=== PATIENT | male | born 1955 | race Caucasian/White ===

== ENCOUNTER 2021-03-18 19:33 | Inpatient (IN) ==
[2021-03-18] MEDS ORDERED: VENTOLIN HFA (PER PUFF-WITH SPACER) IH STA (20:13)
[2021-03-18] MEDS ORDERED: DECADRON IVP ONE (20:20)
--- NOTE | 2021-03-18 20:20 | ED.PDOC ---
General ED Provider: Dr. HANH MOREAU Chief Complaint: Respiratory Complaint Stated Complaint: Patient is a 65 year old male who has a history DM, [place], Tobacco use 80 pk years who is not complaint with medications and has not been vaccinated. He was COVID positive over a week ago. Has had symptoms for 5-7 days. States that he feels short of breath and has body aches. Denies any chest pain. Is agreeable to admission and is a full code. Time Seen by Provider: 03/18/21 19:34 Mode of Arrival: Walk-In Information Source: Patient Nursing and Triage Documentation Reviewed and Agree: Yes Does patient meet sepsis criteria?: No System Inflammatory Response Syndrome: Pulse >90 BPM Sepsis Protocol: For patient's 13 years and over: Temp is 96.8 and below OR 101 and greater Pulse >90 BPM Resp >20/minute Acutely Altered Mental Status Are patient's symptoms suggestive of a new infection, such as: -Pneumonia -Skin, Soft Tissue -Endocarditis -UTI -Bone, Joint Infection -Implantable Device -Acute Abdominal Infection -Wound Infection -Meningitis -Blood Stream Catheter Infection -Unknown Review of Systems Review Of Systems Constitutional: Reports No symptoms Eyes: Reports No symptoms Ears, Nose, Mouth, Throat: Reports No symptoms Respiratory: Reports Short of air Cardiac: Denies Chest pain GI: Reports No symptoms : Reports No symptoms Musculoskeletal: Reports No symptoms Skin: Reports No symptoms Neurological: Reports Anxiety Endocrine: Reports No symptoms All Other Systems: Reviewed and Negative [facility] Medical History (Updated 03/18/21 @ 22:10 by HANH MOREAU MD) Poorly controlled diabetes mellitus Social History Smoking and tobacco status: Current every day smoker Physical Exam Physical Exam Appearance: Reports Ill-appearing Ill-appearing: Moderate Pain Distress: None Eyes: Reports LUZ MARIA, EOMI and Conjunctiva clear ENT: Reports Nose normal and Oropharynx normal Neck: Supple Respiratory: Reports Airway patent and Breath sounds clear Cardiovascular: Reports RRR, Pulses normal and No rub GI/: Reports Soft, Nontender and No masses Musculoskeletal: Reports Normal strength and ROM intact Skin: Reports Warm and Dry Neurological: Reports Motor intact, Alert and Oriented Psychiatric: Reports Anxious Interpretation Radiology Interpretation Radiology Interpretation By: Radiologist Radiology Results: Positive (1. Essentially nondiagnostic examination for pulmonary embolism. No large embolism in the pulmonary trunk and main pulmonary arteries. 2. Patchy airspace opacities in the bilateral upper and lower lobes, right greater than left, consistent with multifocal pneumonia. 3. Bilateral emphysematous matt) Exam Interpreted: CT Scan EKG Interpretation Time of EKG #1: 20: Rate: Normal Rhythm: Sinus Ectopy: None [place]: NL (60) ST Segment: Normal Interpretation: LEFT ATRIAL ENLARGEMENT Critical Care Note Critical Care Note Total Critical Care Time (mins): 40 Course Course Hematology/Chemistry: 03/18/21 20:35 03/18/21 20:35 Orders, Labs, Meds: Lab Review 03/18/21 03/18/21 03/18/21 20:30 20:30 20:30 WBC RBC Hgb Hct MCV MCH MCHC RDW Coeff of Cally Plt Count Immature Gran % (Auto) Neut % (Auto) Lymph % (Auto) [place] % (Auto) Eos % (Auto) Baso % (Auto) Neut # (Auto) Lymph # (Auto) [place] # (Auto) Eos # (Auto) Baso # (Auto) Immature Gran # (Auto) PT INR Puncture Site Lb Base Excess -1.0 O2 Saturation 85.1 L ABG pH 7.46 H ABG pCO2 32.0 L ABG pO2 47.0 L* ABG HCO3 22.8 ABG Total CO2 23.8 Emile Test + Hemoglobin 0.9 Oxyhemoglobin 84.3 L Carboxyhemoglobin 3.1 H Total Hemoglobin 19.7 H FiO2 % 21.0 Sodium Potassium Chloride Carbon Dioxide Anion Gap BUN Creatinine Estimated GFR (MDRD) BUN/Creatinine Ratio Glucose Hemoglobin A1c Lactic Acid Calcium Ferritin Total Bilirubin AST ALT Alkaline Phosphatase Total Creatine Kinase CK-MB (CK-2) CK-MB (CK-2) % Troponin I Total Protein Albumin Globulin Albumin/Globulin Ratio Procalcitonin D-Dimer Influ A Molecular Assay Negative by naat Influ B Molecular Assay Negative by naat SARS CoV-2 RNA Rapid DEON Positive H 03/18/21 03/18/21 03/18/21 20:35 20:35 20:35 WBC RBC Hgb Hct MCV MCH MCHC RDW Coeff of Cally Plt Count Immature Gran % (Auto) Neut % (Auto) Lymph % (Auto) [place] % (Auto) Eos % (Auto) Baso % (Auto) Neut # (Auto) Lymph # (Auto) [place] # (Auto) Eos # (Auto) Baso # (Auto) Immature Gran # (Auto) PT 11.0 INR 1.06 Puncture Site Base Excess O2 Saturation ABG pH ABG pCO2 ABG pO2 ABG HCO3 ABG Total CO2 Emile Test Hemoglobin Oxyhemoglobin Carboxyhemoglobin Total Hemoglobin FiO2 % Sodium 132.8 L Potassium 4.00 Chloride 97.2 L Carbon Dioxide 26.8 Anion Gap 12.80 BUN 18.1 Creatinine 1.30 H Estimated GFR (MDRD) 55.00 BUN/Creatinine Ratio 13.92 Glucose 241.9 H Hemoglobin A1c Lactic Acid Calcium 8.74 Ferritin 615.00 H Total Bilirubin 0.56 AST 41.6 ALT 26.8 Alkaline Phosphatase 93.2 Total Creatine Kinase 130.9 CK-MB (CK-2) 1.020 CK-MB (CK-2) % 0.7700 Troponin I < 0.012 Total Protein 7.37 Albumin 3.95 Globulin 3.42 Albumin/Globulin Ratio 1.15 Procalcitonin D-Dimer 1135.64 H Influ A Molecular Assay Influ B Molecular Assay SARS CoV-2 RNA Rapid DEON 03/18/21 03/18/21 03/18/21 20:35 20:35 20:35 WBC RBC Hgb Hct MCV MCH MCHC RDW Coeff of Cally Plt Count Immature Gran % (Auto) Neut % (Auto) Lymph % (Auto) [place] % (Auto) Eos % (Auto) Baso % (Auto) Neut # (Auto) Lymph # (Auto) [place] # (Auto) Eos # (Auto) Baso # (Auto) Immature Gran # (Auto) PT INR Puncture Site Base Excess O2 Saturation ABG pH ABG pCO2 ABG pO2 ABG HCO3 ABG Total CO2 Emile Test Hemoglobin Oxyhemoglobin Carboxyhemoglobin Total Hemoglobin FiO2 % Sodium Potassium Chloride Carbon Dioxide Anion Gap BUN Creatinine Estimated GFR (MDRD) BUN/Creatinine Ratio Glucose Hemoglobin A1c 13.56 H D Lactic Acid 1.96 Calcium Ferritin Total Bilirubin AST ALT Alkaline Phosphatase Total Creatine Kinase CK-MB (CK-2) CK-MB (CK-2) % Troponin I Total Protein Albumin Globulin Albumin/Globulin Ratio Procalcitonin 0.28 H D-Dimer Influ A Molecular Assay Influ B Molecular Assay SARS CoV-2 RNA Rapid DEON 03/18/21 20:35 WBC 7.59 RBC 5.87 Hgb 17.7 Hct 51.1 MCV 87.1 MCH 30.2 MCHC 34.6 RDW Coeff of Cally 13.2 Plt Count 109 L Immature Gran % (Auto) 0.4 Neut % (Auto) 69.4 Lymph % (Auto) 23.6 [place] % (Auto) 6.5 Eos % (Auto) 0.0 Baso % (Auto) 0.1 Neut # (Auto) 5.3 Lymph # (Auto) 1.8 [place] # (Auto) 0.5 Eos # (Auto) 0.0 Baso # (Auto) 0.0 Immature Gran # (Auto) 0.0 PT INR Puncture Site Base Excess O2 Saturation ABG pH ABG pCO2 ABG pO2 ABG HCO3 ABG Total CO2 Emile Test Hemoglobin Oxyhemoglobin Carboxyhemoglobin Total Hemoglobin FiO2 % Sodium Potassium Chloride Carbon Dioxide Anion Gap BUN Creatinine Estimated GFR (MDRD) BUN/Creatinine Ratio Glucose Hemoglobin A1c Lactic Acid Calcium Ferritin Total Bilirubin AST ALT Alkaline Phosphatase Total Creatine Kinase CK-MB (CK-2) CK-MB (CK-2) % Troponin I Total Protein Albumin Globulin Albumin/Globulin Ratio Procalcitonin D-Dimer Influ A Molecular Assay Influ B Molecular Assay SARS CoV-2 RNA Rapid DEON Orders Category Date Time Status ADMIT PATIENT INPATIENT .TO SCU (MONITORED BED) ADMISSION 03/18/21 22:07 Ordered ABG DRAW REQUEST DAILY@0600 CARDIO 03/19/21 06:00 Ordered ABG DRAW REQUEST DAILY@0600 CARDIO 03/20/21 06:00 Ordered ABG DRAW REQUEST Stat CARDIO 03/18/21 20:10 Completed EKG-(ED ONLY) Stat CARDIO 03/18/21 20:13 Completed INCENTIVE SPIROMETRY Routine CARDIO 03/18/21 21:59 Ordered METERED DOSE INHALATION Routine CARDIO 03/18/21 20:14 Ordered ACCUCHECK (MED/SURG, SCU) [BLOOD GLUCOSE MONITORING ( CARE 03/18/21 21:59 Ordered MED/SURG)] 0630,1100,1700,2100 CONTINUOUS PULSE OX (NURSING) PULSEOX CARE 03/18/21 20:10 Active CONTINUOUS PULSE OX (NURSING) PULSEOX CARE 03/18/21 21:59 Ordered GIVE HS SNACK 2100 CARE 03/18/21 22:03 Ordered NPO REMINDER: IMAGING ONCE CARE 03/18/21 20:14 Active TELEMETRY MONITORING TELE CARE 03/18/21 20:10 Active TELEMETRY MONITORING TELE CARE 03/18/21 21:59 Ordered TELEMETRY MONITORING TELE CARE 03/18/21 22:07 Ordered ADA 1800 BETH. DIET DIETARY 03/19/21 Breakfast Ordered HS SNACK DIETARY 03/18/21 Dinner Ordered ABG COOX DAILY@0600 LAB 03/19/21 06:00 Ordered ABG COOX DAILY@0600 LAB 03/20/21 06:00 Ordered ABG COOX Stat LAB 03/18/21 20:30 Completed BLOOD CULTURE (ED ONLY) Stat LAB 03/18/21 20:35 Received C-REACTIVE PROTEIN DAILY@0600 LAB 03/19/21 06:00 Ordered C-REACTIVE PROTEIN DAILY@0600 LAB 03/20/21 06:00 Ordered C-REACTIVE PROTEIN Stat LAB 03/18/21 20:35 Received CBC W/ AUTO DIFF DAILY@0600 LAB 03/19/21 06:00 Ordered CBC W/ AUTO DIFF DAILY@0600 LAB 03/20/21 06:00 Ordered CBC W/ AUTO DIFF Stat LAB 03/18/21 20:35 Completed CMP [COMPREHENSIVE METABOLIC PANEL] DAILY@0600 LAB 03/19/21 06:00 Ordered CMP [COMPREHENSIVE METABOLIC PANEL] DAILY@0600 LAB 03/20/21 06:00 Ordered COMPREHENSIVE METABOLIC PANEL Stat LAB 03/18/21 20:35 Completed CREATINE KINASE Stat LAB 03/18/21 20:35 Completed D-DIMER DAILY@0600 LAB 03/18/21 06:00 Ordered D-DIMER DAILY@0600 LAB 03/19/21 06:00 Ordered D-DIMER DAILY@0600 LAB 03/20/21 06:00 Ordered D-DIMER Stat LAB 03/18/21 20:35 Completed FERRITIN DAILY@0600 LAB 03/19/21 06:00 Ordered FERRITIN DAILY@0600 LAB 03/20/21 06:00 Ordered FERRITIN Stat LAB 03/18/21 20:35 Completed FLU A & B MOLECULAR [FLU A/B MOLECULAR] Stat LAB 03/18/21 20:30 Completed HEMOGLOBIN A1C Stat LAB 03/18/21 20:35 Completed LACTIC ACID Stat LAB 03/18/21 20:35 Completed Lactic Acid Dehydrogenase DAILY@0600 LAB 03/19/21 06:00 Ordered Lactic Acid Dehydrogenase Stat LAB 03/18/21 20:35 Received PROCALCITONIN Stat LAB 03/18/21 20:35 Completed PT WITH INR Stat LAB 03/18/21 20:35 Completed TROPONIN I DAILY@0600 LAB 03/19/21 06:00 Ordered TROPONIN I DAILY@0600 LAB 03/20/21 06:00 Ordered TROPONIN I Stat LAB 03/18/21 20:35 Completed Albuterol Inhaler(with Spacer) [Ventolin Hfa (Per Puff- MEDS 03/18/21 20:13 Discontinued with Spacer)] 4 puff IH ONCE STA Budesonide/Formoterol Fumarate [Symbicort 160-4.5 Mcg MEDS 03/19/21 09:00 Ordered Inhaler] 4 puff IH BID Ceftriaxone 1 gm Vial [Rocephin 1 gm Vial] 1 gm MEDS 03/19/21 09:00 Ordered 0.9 % Sodium Chloride [Sodium Chloride 100Ml] 100 ml IV DAILY Ceftriaxone 1 gm Vial [Rocephin 1 gm Vial] 1 gm MEDS 03/18/21 21:59 Ordered 0.9 % Sodium Chloride [Sodium Chloride 100Ml] 100 ml IV ONCE Cholecalciferol (Vitamin D3) [Vitamin D] MEDS 03/19/21 09:00 Ordered 5,000 unit PO DAILY Dexamethasone Sod Phosphate [Decadron] MEDS 03/19/21 09:00 Ordered 6 mg IM DAILY Dexamethasone Sod Phosphate [Decadron] MEDS 03/18/21 20:20 Discontinued 6 mg IVP ONCE ONE Enoxaparin Sodium [Lovenox] MEDS 03/19/21 09:00 Ordered 40 mg SUBCUT DAILY Famotidine [Pepcid] MEDS 03/19/21 06:30 Ordered 40 mg PO BIDAC Nicotine 21 mg [Nicoderm 21 mg] MEDS 03/19/21 09:00 Ordered 1 patch TD DAILY Remdesivir Solution [Veklury] 100 mg MEDS 03/20/21 09:00 Ordered 0.9 % Sodium Chloride [Sodium Chloride] 250 ml IV DAILY Remdesivir Solution [Veklury] 200 mg MEDS 03/19/21 09:59 Ordered 0.9 % Sodium Chloride [Sodium Chloride] 250 ml IV ONCE Zinc Sulfate [Zinc-220] MEDS 03/19/21 09:00 Ordered [address] CHEST PE PROTOCOL Stat RADS 03/18/21 20:13 Taken Medications Generic Name Dose Route Start Last Admin Trade Name Freq PRN Reason Stop Dose Admin Budesonide/Formoterol Fumarate 4 puff 03/19/21 09:00 Budesonide/Formoterol Fumarate 160/4.5 Mcg Inhaler IH BID [facility] Cholecalciferol 5,000 unit 03/19/21 09:00 Cholecalciferol (Vitamin D3) 1,000 Unit (25 Mcg) Tablet PO DAILY LUKE Dexamethasone Sodium Phosphate 6 mg 03/19/21 09:00 Dexamethasone Sod Phos 10 Mg/Ml Inj IM DAILY LUKE Enoxaparin Sodium 40 mg 03/19/21 09:00 Enoxaparin Sodium 40 Mg/0.4 Ml Syr SUBCUT DAILY LUKE Famotidine 40 mg 03/19/21 06:30 Famotidine 20 Mg Tablet PO BIDAC LUKE REMDESIVIR SOLUTION 100 mg/ 270 mls @ 270 mls/hr 03/20/21 09:00 Sodium Chloride IV DAILY LUKE REMDESIVIR SOLUTION 200 mg/ 290 mls @ 145 mls/hr 03/19/21 09:59 Sodium Chloride IV 03/19/21 11:58 ONCE ONE Ceftriaxone Sodium 1 gm/ 100 mls @ 150 mls/hr 03/18/21 21:59 Sodium Chloride IV 03/18/21 22:38 ONCE STA Ceftriaxone Sodium 1 gm/ 100 mls @ 150 mls/hr 03/19/21 09:00 Sodium Chloride IV 03/22/21 08:59 DAILY LUKE Zinc Sulfate 220 mg 03/19/21 09:00 Zinc Sulfate 220 Mg Capsule PO DAILY LUKE Discontinued Medications Generic Name Dose Route Start Last Admin Trade Name Patrickq PRN Reason Stop Dose Admin Albuterol Sulfate 4 puff 03/18/21 20:13 03/18/21 20:20 Albuterol Sulfate (Ventolin Hfa) 18 Gm 1 Puff With Spacer IH 03/18/21 20:14 4 puff ONCE STA Administration Dexamethasone Sodium Phosphate 6 mg 03/18/21 20:20 03/18/21 20:54 Dexamethasone Sod Phos 10 Mg/Ml Inj IVP 03/18/21 20:21 6 mg ONCE ONE Administration Vital Signs: Temp Pulse Resp BP Pulse Ox 03/18/21 20:00 99.6 F 102 H 20 139/67 93 L Discharge Plan Discharge Patient Disposition: ADMITTED INPATIENT Discharge Problem: Acute hypoxemic respiratory failure due to COVID-19, Poorly controlled diabetes mellitus ED Provider: HANH MOREAU Condition: Fair Physician Progress Note: []
[2021-03-18 20:39] LABS: ABG O2 HGB 84.3 % (95-100); ABG PH 7.46 (7.35-7.45); COHb 3.1 (0.5-1.5); HCO3 22.8 (21-28); MetHb 0.9 (0-1.5); TCO2 23.8 (19-24); sO2 85.1 % (94-98); tHb 19.7 g/dl (11.7-17.4)
[2021-03-18 20:58] LABS: ALANINE AMINOTRANSFERASE 26.8 U/L (0-50); ALBUMIN 3.95 g/dL (3.5-5.0); ALKALINE PHOSPHATASE 93.2 U/L (56-119); ASPARTATE AMINO TRANSFERASE 41.6 U/L (17-59); BILIRUBIN,TOTAL 0.56 mg/dL (0.2-1.3); BLOOD UREA NITROGEN 18.1 mg/dL (9-20); CALCIUM 8.74 mg/dL (8.4-10.2); CARBON DIOXIDE 26.8 mmol/L (22-30.0); CHLORIDE 97.2 mmol/L (98-107); CREATINE KINASE 130.9 U/L (55-170); GLUCOSE 241.9 mg/dL (74-106); SODIUM 132.8 mmol/L (134.5-145); TOTAL PROTEIN 7.37 g/dL (6.3-8.2)
[2021-03-18 21:08] LABS: BASOPHILS % (AUTO) 0.1 % (0.0-3.0); HEMATOCRIT 51.1 % (42.0-52.0); HEMOGLOBIN 17.7 g/dl (14.0-18.0); IMMATURE GRANULOCYTE % (AUTO) 0.4 % (0.0-5.0); LYMPHOCYTES # (AUTO) 1.8 K/uL (0.60-3.4); LYMPHOCYTES % (AUTO) 23.6 (10.0-50.0); MEAN CORPUSCULAR HEMOGLOBIN 30.2 pg (27.0-31.0); MEAN CORPUSCULAR HGB CONC 34.6 (31.8-35.4); MEAN CORPUSCULAR VOLUME 87.1 fl (80.0-94.0); MONOCYTES # (AUTO) 0.5 K/uL (0.4-2.0); MONOCYTES % (AUTO) 6.5 (0-10); NEUTROPHILS # (AUTO) 5.3 K/ul (2.0-6.9); NEUTROPHILS % (AUTO) 69.4 % (42.2-75.2); PLATELET COUNT 109 10^3/uL (140-440); RDW COEFFICIENT OF VARIATION 13.2 % (11.6-14.8); RED BLOOD COUNT 5.87 10^6/ul (4.70-6.10); WHITE BLOOD COUNT 7.59 K/ul (4.2-10.2)
[2021-03-18 21:09] LABS: MOLECULAR FLU A NEGATIVE BY NAAT (NEGATIVE); MOLECULAR FLU B NEGATIVE BY NAAT (NEGATIVE)
[2021-03-18 21:15] LABS: TROPONIN I < 0.012 ng/ml (0.0000-0.120)
--- NOTE | 2021-03-18 21:54 | CT ---
EXAM: Chest CTA with contrast 03/18/2021 HISTORY: Short of breath, COVID-19 exposure. TECHNIQUE: Axial CT images were obtained through the chest with the administration of intravenous con trast in accordance with the PE protocol. Coronal, bilateral oblique and sagittal reformatted images were also submitted for interpretation. 3D/MIP images of the pulmonary vasculature were also genera meghan. COMPARISON: None. FINDINGS: There is poor enhancement of the pulmonary arteries due to suboptimal contrast timing. The pulmonary arteries are normal in size. There are no large filling defects in the pulmonary trunk and main pul monary arteries to suggest pulmonary embolism. There is no evidence of right heart strain. Patchy airspace opacities in the bilateral upper and lower lobes, right greater than left. There are bilateral emphysematous changes. The heart size is normal without pericardial effusion. There are coronary artery calcifications. Th e thoracic aorta is normal in size. The visualized portions of the upper abdomen are within normal limits. No pathologic lymphadenopathy is identified. Soft tissue structures are unremarkable. The bones are intact. IMPRESSION: 1. Essentially nondiagnostic examination for pulmonary embolism. No large embolism in the pulmonary trunk and main pulmonary arteries. 2. Patchy airspace opacities in the bilateral upper and lower lobes, right greater than left, consist ent with multifocal pneumonia. 3. Bilateral emphysematous changes. 4. Coronary artery calcifications. All CT scans are performed using dose optimization techniques as appropriate to the performed exam an d include at least one of the following: Automated exposure control, adjustment of the mA and/or kV according t o size, and the use of iterative reconstruction technique.
[2021-03-18] MEDS ORDERED: ROCEPHIN 1 GM VIAL 1 GM in SODIUM CHLORIDE 100ML 100 ML IV STA (21:59)
[2021-03-18] MEDS ORDERED: ROCEPHIN 1 GM VIAL ONE (22:10)
[2021-03-18] MEDS ORDERED: SODIUM CHLORIDE 1,000 ML IV STA (22:11)
[2021-03-18 23:25] VITALS: BMI 31.1
[2021-03-18] MEDS ORDERED: ZITHROMAX 500 MG in SODIUM CHLORIDE 250 ML IV ONE (23:30)
[2021-03-18] MEDS: HUMULIN R SUBCUT PRN (23:52)
[2021-03-19 04:19] LABS: ABG O2 HGB 88.7 % (95-100); ABG PH 7.47 (7.35-7.45); BEecf 2.5 (-2.0-3.0); HCO3 26.2 (21-28); MetHb 1.1 (0-1.5); TCO2 27.3 (19-24); sO2 90.2 % (94-98); tHb 16.7 g/dl (11.7-17.4)
[2021-03-19 04:57] LABS: HEMATOCRIT 48.6 % (42.0-52.0); HEMOGLOBIN 16.6 g/dl (14.0-18.0); IMMATURE GRANULOCYTE % (AUTO) 0.4 % (0.0-5.0); LYMPHOCYTES # (AUTO) 0.9 K/uL (0.60-3.4); LYMPHOCYTES % (AUTO) 12.6 (10.0-50.0); MEAN CORPUSCULAR HEMOGLOBIN 29.5 pg (27.0-31.0); MEAN CORPUSCULAR HGB CONC 34.2 (31.8-35.4); MEAN CORPUSCULAR VOLUME 86.3 fl (80.0-94.0); MONOCYTES # (AUTO) 0.3 K/uL (0.4-2.0); MONOCYTES % (AUTO) 4.7 (0-10); NEUTROPHILS # (AUTO) 5.6 K/ul (2.0-6.9); NEUTROPHILS % (AUTO) 82.3 % (42.2-75.2); PLATELET COUNT 114 10^3/uL (140-440); RDW COEFFICIENT OF VARIATION 13.3 % (11.6-14.8); RED BLOOD COUNT 5.63 10^6/ul (4.70-6.10); WHITE BLOOD COUNT 6.75 K/ul (4.2-10.2)
[2021-03-19 05:06] LABS: ALANINE AMINOTRANSFERASE 24.8 U/L (0-50); ALBUMIN 3.59 g/dL (3.5-5.0); ALKALINE PHOSPHATASE 77.7 U/L (56-119); ASPARTATE AMINO TRANSFERASE 36.6 U/L (17-59); BILIRUBIN,TOTAL 0.31 mg/dL (0.2-1.3); BLOOD UREA NITROGEN 18.8 mg/dL (9-20); CALCIUM 8.49 mg/dL (8.4-10.2); CARBON DIOXIDE 25.7 mmol/L (22-30.0); CHLORIDE 99.1 mmol/L (98-107); CREATININE 1.16 mg/dL (0.60-1.10); POTASSIUM 4.33 mmol/L (3.5-5.1); SODIUM 131.9 mmol/L (134.5-145); TOTAL PROTEIN 6.78 g/dL (6.3-8.2)
[2021-03-19 05:18] LABS: TROPONIN I 0.012 ng/ml (0.0000-0.120)
[2021-03-19] MEDS: HUMULIN R SUBCUT PRN ×5 (05:35→23:07)
[2021-03-19] MEDS: PEPCID PO SCH ×2 (05:35→17:05)
[2021-03-19] MEDS: ROCEPHIN 1 GM VIAL 1 GM in SODIUM CHLORIDE 100ML 100 ML IV SCH (09:04)
[2021-03-19] MEDS: DECADRON IM SCH (09:04)
[2021-03-19] MEDS: ZINC-220 PO SCH (09:06)
[2021-03-19] MEDS: VITAMIN D PO SCH (09:06)
[2021-03-19] MEDS: LOVENOX SUBCUT SCH (09:07)
[2021-03-19] MEDS: NICODERM 21 MG TD SCH (09:15)
[2021-03-19] MEDS: SYMBICORT 160-4.5 MCG INHALER IH SCH ×2 (09:15→20:59)
[2021-03-19] MEDS ORDERED: VEKLURY 200 MG in SODIUM CHLORIDE 250 ML IV ONE (12:00)
[2021-03-19] MEDS ORDERED: SODIUM CHLORIDE 1,000 ML IV SCH ×3 (17:00→23:30)
[2021-03-19] MEDS: ZITHROMAX 500 MG in SODIUM CHLORIDE 250 ML IV SCH (20:59)
--- NOTE | 2021-03-19 21:34 | PCM.PROG ---
Date Seen by Provider: 03/19/21 Time Seen by Provider: 20:15 Subjective: No acute SOB or chest pain. Blood sugar has been high. Objective: Vitals: T=98.8 F, P=77, R=20, VH=789/72, SPO2=93 HEENT: []wnl Neck: []supple Lungs: []generalized posterior crackles. Pt was breathing comfortably CVS: []RRR Abdomen: []benign Extremities: []no acute abnormality Neurological: []no acute focal neuro deficit Skin: []wnl Lab/Tests/Diagnostic Imaging: [] See the reports. BS >400 (1) Acute hypoxemic respiratory failure due to COVID-19: Status: Acute Code(s): U07.1 - COVID-19; J96.01 - Acute respiratory failure with hypoxia SNOMED Code(s): 069903585 (2) Poorly controlled diabetes mellitus: Status: Acute Code(s): E11.65 - Type 2 diabetes mellitus with hyperglycemia SNOMED Code(s): 989603479 Plan: 1. Continue Tx for the COvid-19 hypoxemia. 2. Sliding scale control of the hyperglycemia.
[2021-03-20 04:19] LABS: C-REACTIVE PROTEIN 89 mg/L (0-10)
[2021-03-20 05:39] LABS: HEMATOCRIT 46.1 % (42.0-52.0); HEMOGLOBIN 15.8 g/dl (14.0-18.0); IMMATURE GRANULOCYTE % (AUTO) 0.4 % (0.0-5.0); LYMPHOCYTES # (AUTO) 1.3 K/uL (0.60-3.4); LYMPHOCYTES % (AUTO) 17.6 (10.0-50.0); MEAN CORPUSCULAR HEMOGLOBIN 29.8 pg (27.0-31.0); MEAN CORPUSCULAR HGB CONC 34.3 (31.8-35.4); MEAN CORPUSCULAR VOLUME 86.8 fl (80.0-94.0); MONOCYTES # (AUTO) 0.5 K/uL (0.4-2.0); MONOCYTES % (AUTO) 7.3 (0-10); NEUTROPHILS # (AUTO) 5.4 K/ul (2.0-6.9); NEUTROPHILS % (AUTO) 74.7 % (42.2-75.2); PLATELET COUNT 109 10^3/uL (140-440); RDW COEFFICIENT OF VARIATION 13.3 % (11.6-14.8); RED BLOOD COUNT 5.31 10^6/ul (4.70-6.10); WHITE BLOOD COUNT 7.17 K/ul (4.2-10.2)
[2021-03-20 05:47] LABS: ALANINE AMINOTRANSFERASE 21.6 U/L (0-50); ALKALINE PHOSPHATASE 64.3 U/L (56-119); ASPARTATE AMINO TRANSFERASE 33.5 U/L (17-59); BILIRUBIN,TOTAL 0.24 mg/dL (0.2-1.3); BLOOD UREA NITROGEN 19.3 mg/dL (9-20); CALCIUM 8.38 mg/dL (8.4-10.2); CARBON DIOXIDE 25.3 mmol/L (22-30.0); CHLORIDE 108.2 mmol/L (98-107); CREATININE 0.93 mg/dL (0.60-1.10); GLUCOSE 182.6 mg/dL (74-106); POTASSIUM 4.09 mmol/L (3.5-5.1); SODIUM 138.7 mmol/L (134.5-145); TOTAL PROTEIN 6.24 g/dL (6.3-8.2)
[2021-03-20 05:55] LABS: ABG O2 HGB 88.1 % (95-100); ABG PH 7.45 (7.35-7.45); COHb 2.3 (0.5-1.5); MetHb 0.8 (0-1.5); TCO2 26.1 (19-24); sO2 88.1 % (94-98); tHb 15.8 g/dl (11.7-17.4)
[2021-03-20 05:57] LABS: PROTHROMBIN TIME 9.9 SEC (9.3-11.0)
[2021-03-20 06:00] LABS: TROPONIN I < 0.012 ng/ml (0.0000-0.120)
[2021-03-20] MEDS: SODIUM CHLORIDE 1,000 ML IV SCH ×2 (06:09→17:05)
[2021-03-20] MEDS: HUMULIN R SUBCUT PRN ×4 (06:10→20:45)
[2021-03-20] MEDS: PEPCID PO SCH ×2 (06:10→17:03)
[2021-03-20 06:11] LABS: C-REACTIVE PROTEIN 81 mg/L (0-10)
[2021-03-20] MEDS: DECADRON IM SCH (08:17)
[2021-03-20] MEDS: ZINC-220 PO SCH (08:18)
[2021-03-20] MEDS: VITAMIN D PO SCH (08:18)
[2021-03-20] MEDS: LOVENOX SUBCUT SCH (08:21)
[2021-03-20] MEDS: SYMBICORT 160-4.5 MCG INHALER IH SCH ×2 (08:34→20:33)
[2021-03-20] MEDS: ROCEPHIN 1 GM VIAL 1 GM in SODIUM CHLORIDE 100ML 100 ML IV SCH (08:38)
[2021-03-20] MEDS: NICODERM 21 MG TD SCH (09:19)
--- NOTE | 2021-03-20 10:01 | PCM.PROG ---
Date Seen by Provider: 03/20/21 Time Seen by Provider: 09:57 Subjective: Follow up Respiratory infection. On day 3 IV remdesivir. States breathing easier. Objective: Vitals: T=98.1 F, P=79, R=22, ON=459/75, SPO2=90 HEENT:Clear Neck: No JVD Lungs: Respirations easy and non labored CVS: HR rrr Abdomen: Soft non tender, non distended> BS active Extremities: Net edems Neurological: WNL Skin: WNL Lab/Tests/Diagnostic Imaging: [] (1) Acute hypoxemic respiratory failure due to COVID-19: Status: Acute Code(s): U07.1 - COVID-19; J96.01 - Acute respiratory failure with hypoxia SNOMED Code(s): 879156378 (2) Poorly controlled diabetes mellitus: Status: Acute Code(s): E11.65 - Type 2 diabetes mellitus with hyperglycemia SNOMED Code(s): 257245307 Plan: Continue Present therapy Switch IM Decadron to IVp
[2021-03-20] MEDS: DECADRON IVP SCH (12:16)
[2021-03-20] MEDS: VEKLURY 100 MG in SODIUM CHLORIDE 250 ML IV SCH (12:35)
[2021-03-20] MEDS: ZITHROMAX 500 MG in SODIUM CHLORIDE 250 ML IV SCH (20:33)
[2021-03-20] MEDS ORDERED: GLUCOPHAGE PO STA (22:54)
[2021-03-21] MEDS: SODIUM CHLORIDE 1,000 ML IV SCH ×3 (05:02→20:43)
[2021-03-21 05:47] LABS: ALANINE AMINOTRANSFERASE 21.7 U/L (0-50); ALBUMIN 2.98 g/dL (3.5-5.0); ALKALINE PHOSPHATASE 66.8 U/L (56-119); ASPARTATE AMINO TRANSFERASE 31.7 U/L (17-59); BILIRUBIN,TOTAL 0.26 mg/dL (0.2-1.3); BLOOD UREA NITROGEN 19.3 mg/dL (9-20); CALCIUM 8.14 mg/dL (8.4-10.2); CARBON DIOXIDE 24.5 mmol/L (22-30.0); CHLORIDE 108.4 mmol/L (98-107); CREATININE 0.9 mg/dL (0.60-1.10); GLUCOSE 204.4 mg/dL (74-106); POTASSIUM 3.85 mmol/L (3.5-5.1); SODIUM 138.7 mmol/L (134.5-145); TOTAL PROTEIN 5.97 g/dL (6.3-8.2)
[2021-03-21] MEDS: HUMULIN R SUBCUT PRN ×4 (05:54→20:22)
[2021-03-21] MEDS: PEPCID PO SCH ×2 (05:54→17:32)
[2021-03-21 06:02] LABS: PROTHROMBIN TIME 10.2 SEC (9.3-11.0)
[2021-03-21] MEDS: ROCEPHIN 1 GM VIAL 1 GM in SODIUM CHLORIDE 100ML 100 ML IV SCH (08:24)
[2021-03-21] MEDS: SYMBICORT 160-4.5 MCG INHALER IH SCH ×2 (08:24→20:19)
[2021-03-21] MEDS: ZINC-220 PO SCH (08:25)
[2021-03-21] MEDS: VITAMIN D PO SCH (08:25)
[2021-03-21] MEDS: DECADRON IVP SCH (08:25)
[2021-03-21] MEDS: GLUCOPHAGE PO SCH ×2 (08:25→17:32)
[2021-03-21] MEDS: LOVENOX SUBCUT SCH (08:26)
[2021-03-21] MEDS ORDERED: GLUCOPHAGE PO SCH ×2 (08:30→09:00)
[2021-03-21] MEDS: NICODERM 21 MG TD SCH (09:10)
[2021-03-21] MEDS: VEKLURY 100 MG in SODIUM CHLORIDE 250 ML IV SCH (13:30)
[2021-03-22 05:01] LABS: ABG PH 7.42 (7.35-7.45)
[2021-03-22 05:02] LABS: BEecf 1.4 (-2.0-3.0); COHb 1.8 (0.5-1.5); HCO3 25.9 (21-28)
[2021-03-22 05:03] LABS: ABG O2 HGB 57.4 % (95-100); MetHb 0.5 (0-1.5); TCO2 27.1 (19-24); tHb 15.1 g/dl (11.7-17.4)
[2021-03-22 06:07] LABS: PROTHROMBIN TIME 10.3 SEC (9.3-11.0)
[2021-03-22] MEDS: PEPCID PO SCH ×2 (06:08→16:24)
[2021-03-22 06:11] LABS: ALBUMIN 2.91 g/dL (3.5-5.0); ALKALINE PHOSPHATASE 62.3 U/L (56-119); ASPARTATE AMINO TRANSFERASE 43.6 U/L (17-59); BILIRUBIN,TOTAL 0.34 mg/dL (0.2-1.3); BLOOD UREA NITROGEN 20.3 mg/dL (9-20); CALCIUM 8.15 mg/dL (8.4-10.2); CARBON DIOXIDE 25.6 mmol/L (22-30.0); CHLORIDE 110.1 mmol/L (98-107); CREATININE 0.86 mg/dL (0.60-1.10); GLUCOSE 188.7 mg/dL (74-106); POTASSIUM 3.81 mmol/L (3.5-5.1); SODIUM 138.3 mmol/L (134.5-145); TOTAL PROTEIN 5.81 g/dL (6.3-8.2)
[2021-03-22] MEDS: HUMULIN R SUBCUT PRN ×4 (06:14→20:27)
[2021-03-22] MEDS: SYMBICORT 160-4.5 MCG INHALER IH SCH ×2 (08:36→20:23)
[2021-03-22] MEDS: VITAMIN D PO SCH (08:36)
[2021-03-22] MEDS: GLUCOPHAGE PO SCH ×2 (08:37→16:25)
[2021-03-22] MEDS: LOVENOX SUBCUT SCH (08:38)
[2021-03-22] MEDS: DECADRON IVP SCH (08:38)
[2021-03-22] MEDS: ZINC-220 PO SCH (08:38)
[2021-03-22] MEDS: NICODERM 21 MG TD SCH (09:32)
[2021-03-22] MEDS: VEKLURY 100 MG in SODIUM CHLORIDE 250 ML IV SCH (11:58)
--- NOTE | 2021-03-22 14:10 | PCM.PROG ---
Date Seen by Provider: 03/21/21 Time Seen by Provider: 11:05 Subjective: No acute SOB or chest pain Objective: Vitals: T=98.2 F, P=82, R=20, QT=973/60, SPO2=95 HEENT: []wnl Neck: []supple. Lungs: []minimal posterior rhonchi CVS: []RRR Abdomen: []benign Extremities: []no acute abnormality Neurological: []non-focal Skin: []wnl Lab/Tests/Diagnostic Imaging: [] Please see the labs and imaging results. (1) Acute hypoxemic respiratory failure due to COVID-19: Status: Acute Code(s): U07.1 - COVID-19; J96.01 - Acute respiratory failure with hypoxia SNOMED Code(s): 257479390 (2) Poorly controlled diabetes mellitus: Status: Acute Code(s): E11.65 - Type 2 diabetes mellitus with hyperglycemia SNOMED Code(s): 768302722 Plan: Continue Tx regimen. 2. Decreased Oxygen to 4l/min. 3. Monitor blood glucose.
[2021-03-22] MEDS: SODIUM CHLORIDE 1,000 ML IV SCH (16:25)
[2021-03-23 04:37] LABS: ABG O2 HGB 90.7 % (95-100); ABG PH 7.46 (7.35-7.45); BEecf -0.3 (-2.0-3.0); COHb 2.4 (0.5-1.5); HCO3 23.5 (21-28); MetHb 0.6 (0-1.5); TCO2 24.5 (19-24); sO2 91.3 % (94-98); tHb 20.9 g/dl (11.7-17.4)
[2021-03-23] MEDS: PEPCID PO SCH ×2 (05:24→16:48)
[2021-03-23 05:44] LABS: PROTHROMBIN TIME 10.1 SEC (9.3-11.0)
[2021-03-23 05:49] LABS: ALANINE AMINOTRANSFERASE 40.8 U/L (0-50); ALBUMIN 3.12 g/dL (3.5-5.0); ALKALINE PHOSPHATASE 65.3 U/L (56-119); ASPARTATE AMINO TRANSFERASE 44.3 U/L (17-59); BILIRUBIN,TOTAL 0.5 mg/dL (0.2-1.3); BLOOD UREA NITROGEN 17.5 mg/dL (9-20); CALCIUM 8.5 mg/dL (8.4-10.2); CHLORIDE 108.7 mmol/L (98-107); CREATININE 0.79 mg/dL (0.60-1.10); GLUCOSE 184.3 mg/dL (74-106); POTASSIUM 3.76 mmol/L (3.5-5.1); SODIUM 136.8 mmol/L (134.5-145); TOTAL PROTEIN 6.13 g/dL (6.3-8.2)
[2021-03-23] MEDS: HUMULIN R SUBCUT PRN ×4 (06:21→20:59)
[2021-03-23] MEDS: LOVENOX SUBCUT SCH (08:19)
[2021-03-23] MEDS: DECADRON IVP SCH (08:20)
[2021-03-23] MEDS: VITAMIN D PO SCH (08:20)
[2021-03-23] MEDS: SYMBICORT 160-4.5 MCG INHALER IH SCH ×2 (08:21→20:59)
[2021-03-23] MEDS: ZINC-220 PO SCH (08:21)
[2021-03-23] MEDS: GLUCOPHAGE PO SCH ×2 (08:21→16:47)
[2021-03-23] MEDS: NICODERM 21 MG TD SCH (08:42)
[2021-03-23] MEDS: VEKLURY 100 MG in SODIUM CHLORIDE 250 ML IV SCH (12:01)
--- NOTE | 2021-03-23 12:10 | PCM.PROG ---
Date Seen by Provider: 03/23/21 Subjective: pt improving and hopes to go home tomorrow, though still oxygen dependent, but states he has access to home oxygen, down to 4 liters from 6ters ms, today last day of Remdesivir, pt still on insulin R sliding scale Objective: Vitals: T=97.7 F, P=70, R=18, EE=648/72, SPO2=93 HEENT: []eomi Neck: []supple Lungs: [] no respiratory distress CVS: []RRR Abdomen: []nondistended Extremities: []arya Neurological: []affect appropriate Skin: []color normal Lab/Tests/Diagnostic Imaging: [] (1) Acute hypoxemic respiratory failure due to COVID-19: Status: Acute Code(s): U07.1 - COVID-19; J96.01 - Acute respiratory failure with hypoxia SNOMED Code(s): 771608025 (2) Poorly controlled diabetes mellitus: Status: Acute Code(s): E11.65 - Type 2 diabetes mellitus with hyperglycemia SNOMED Code(s): 315193176 Plan: discharge home in the morning care to Dr Arroyo at 19:00
[2021-03-23] MEDS: SODIUM CHLORIDE 1,000 ML IV SCH (12:42)
[2021-03-23 21:33] VITALS: BP 135/70
--- NOTE | 2021-03-23 22:34 | PCM.PROG ---
Date Seen by Provider: 03/22/21 Time Seen by Provider: 07:40 Subjective: Doing well and offers no new complaint Having much easier time with respirations Objective: Vitals: T=97.7 F, P=77, R=20, WZ=374/70, SPO2=91 HEENT: clear Neck: supple Lungs: CTA-AF CVS: Hrrrr Abdomen: soft non tender Extremities:no edema Neurological: WML Skin: wn Lab/Tests/Diagnostic Imaging: [] (1) Acute hypoxemic respiratory failure due to COVID-19: Status: Acute Code(s): U07.1 - COVID-19; J96.01 - Acute respiratory failure with hypoxia SNOMED Code(s): 960050292 Assessment: Status improving (2) Poorly controlled diabetes mellitus: Status: Acute Code(s): E11.65 - Type 2 diabetes mellitus with hyperglycemia SNOMED Code(s): 905670074 Plan: continus current therapy Re ck lab in am diischarge planning
[2021-03-24 05:20] VITALS: TEMP 98.2
[2021-03-24] MEDS: PEPCID PO SCH (05:34)
[2021-03-24 05:49] LABS: BASOPHILS % (AUTO) 0.6 % (0.0-3.0); EOSINOPHILS % (AUTO) 0.5 % (0.0-7.0); HEMATOCRIT 45.4 % (42.0-52.0); HEMOGLOBIN 15.6 g/dl (14.0-18.0); IMMATURE GRANULOCYTE # (AUTO) 0.2 (0.0-1.0); IMMATURE GRANULOCYTE % (AUTO) 2.8 % (0.0-5.0); LYMPHOCYTES # (AUTO) 1.7 K/uL (0.60-3.4); LYMPHOCYTES % (AUTO) 26.6 (10.0-50.0); MEAN CORPUSCULAR HEMOGLOBIN 29.8 pg (27.0-31.0); MEAN CORPUSCULAR HGB CONC 34.4 (31.8-35.4); MEAN CORPUSCULAR VOLUME 86.6 fl (80.0-94.0); MONOCYTES # (AUTO) 0.7 K/uL (0.4-2.0); MONOCYTES % (AUTO) 10.6 (0-10); NEUTROPHILS # (AUTO) 3.9 K/ul (2.0-6.9); NEUTROPHILS % (AUTO) 58.9 % (42.2-75.2); PLATELET COUNT 177 10^3/uL (140-440); RDW COEFFICIENT OF VARIATION 13.2 % (11.6-14.8); RED BLOOD COUNT 5.24 10^6/ul (4.70-6.10); WHITE BLOOD COUNT 6.54 K/ul (4.2-10.2)
[2021-03-24 06:03] LABS: ALANINE AMINOTRANSFERASE 35.9 U/L (0-50); ALBUMIN 3.21 g/dL (3.5-5.0); ASPARTATE AMINO TRANSFERASE 33.7 U/L (17-59); BILIRUBIN,TOTAL 0.59 mg/dL (0.2-1.3); BLOOD UREA NITROGEN 20.5 mg/dL (9-20); CALCIUM 8.61 mg/dL (8.4-10.2); CARBON DIOXIDE 26.5 mmol/L (22-30.0); CHLORIDE 106.2 mmol/L (98-107); CREATININE 0.85 mg/dL (0.60-1.10); GLUCOSE 132.8 mg/dL (74-106); POTASSIUM 3.77 mmol/L (3.5-5.1); SODIUM 136.2 mmol/L (134.5-145); TOTAL PROTEIN 6.16 g/dL (6.3-8.2)
--- NOTE | 2021-04-05 16:54 | PCM.DC ---
Final Diagnosis: Acute hypoxemic respiratory failure due to COVID-19: Status:Acute Code(s): U07.1 - COVID-19; J96.01 - Acute respiratory failure with hypoxia SNOMED Code(s):286590244 (2) Poorly controlled diabetes mellitus: Status:Acute Code(s): E11.65 - Type 2 diabetes mellitus with hyperglycemia SNOMED Code(s):593944979 Medications at Discharge: See Below Physical Exam Ill-appearing: Mild Pain Distress: None Eyes: LUZ MARIA, EOMI, Conjunctiva clear and Not Examined ENT: Ears normal, Nose normal and Oropharynx normal Neck: Supple Respiratory: Airway patent, Breath sounds diminished and Respirations nonlabored Cardiovascular: RRR and Pulses normal GI/: Soft, Nontender, No masses and Bowel sounds normal Musculoskeletal: Normal strength, ROM intact and No edema Skin: Warm, Dry and Normal color Neurological: Sensation intact, Motor intact, Cranial nerves intact, Alert and Oriented Psychiatric: Affect appropriate (1) Acute hypoxemic respiratory failure due to COVID-19: Status: Acute Code(s): U07.1 - COVID-19; J96.01 - Acute respiratory failure with hypoxia SNOMED Code(s): 905869548 (2) Poorly controlled diabetes mellitus: Status: Acute Code(s): E11.65 - Type 2 diabetes mellitus with hyperglycemia SNOMED Code(s): 338292584 Reason for Hospitalization: Patient is a 65 year old male who has a history DM, [place], Tobacco use 80 pk years who is not complaint with medications and has not been vaccinated. He was COVID positive over a week ago. Has had symptoms for 5-7 days. States that he feels short of breath and has body aches. Denies any chest pain. Is agreeable to admission . Prognosis/Condition at Discharge: Guarded Medications at Discharge: Ambulatory Orders Medication Instructions Recorded albuterol sulfate 90 mcg/actuation 4 puff INHALATION ONCE 30 Days g 03/24/21 aerosol inhaler (Ventolin HFA) budesonide-formoterol HFA 160 4 puff INHALATION BID #1 g 03/24/21 mcg-4.5 mcg/actuation aerosol inhaler (Symbicort) cholecalciferol (vitamin D3) 25 5,000 unit PO DAILY #60 tab 03/24/21 mcg (1,000 unit) tablet metformin 500 mg tablet 1,000 mg PO BIDWM #60 tab 03/24/21 Lab/Diagnostics: See Chart Education Provided to Patient and Family: Yes Follow-ups: Post hospitalization with PCP Discharge Disposition: Home Hospital Course: Patient admitted and IV fluids administered along with IV Remdesivir, IV steroids and antibiotics/ Patient progressively improved and discharged to home on 03/24/2021in stable and satisfactory condition. Instructions for home care, follow up care and meds provided
== END 2021-03-24 09:50 | disposition home or self-care (01) | DRG 177 ==
LOC: ED 19:33 → SCU 22:26
PROVIDERS: ADMIT Internal Medicine Geriatric Medicine; ATTEND Emergency Medicine
DX: Z72.0 Tobacco use; Z79.899 Other long term (current) drug therapy; J12.82 Pneumonia due to coronavirus disease 2019; Z51.81 Encounter for therapeutic drug level monitoring; I25.2 Old myocardial infarction; J96.01 Acute respiratory failure with hypoxia; U07.1 COVID-19; E11.65 Type 2 diabetes mellitus with hyperglycemia